=== PATIENT | female | born 1955 | race Caucasian/White ===

== ENCOUNTER 2020-05-01 12:21 | Emergency (ER) | payer BC, OTHER | END 2020-05-01 12:40 | disposition home or self-care (01) | LOC: JVIRT 12:21 | DX: U07.1 COVID-19 (principal) | CPT/HCPCS: C9803; G2012-GT; U0003 ==

== ENCOUNTER 2021-11-03 10:32 | Day surgery (SDC) | payer BC, OTHER ==
[2021-11-02 12:15] VITALS: BMI 32.2
[2021-11-03 12:09] VITALS: PULSE 69; TEMP 97.3
[2021-11-03 12:25] VITALS: BP 108/50
== END 2021-11-03 12:53 | disposition home or self-care (01) ==
LOC: FASU-ENDO 10:32
PROVIDERS: ATTEND Internal Medicine Gastroenterology
PROC: 0DJD8ZZ Inspection of Lower Intestinal Tract, Via Natural or Artificial Opening Endoscopic (ICD-10-PCS; principal; 2021-11-03 11:42)
DX: Z12.11 Encounter for screening for malignant neoplasm of colon (principal); K64.1 Second degree hemorrhoids